=== PATIENT | male | born 1945 | race Caucasian/White ===

== ENCOUNTER → 2017-08-27 16:35 | Outpatient (CLI) | payer MEDICARE, OTHER ==
[~2017-08-27 16:35] MED LIST: BAYER CHEWABLE81 MG PO; BREO ELLIPTA 11 EACH INH; IPRAT-ALBUT 0.5-3 ML UPD; KLOR-CON 1010 MEQ PO; MIRAPEX0.125 MG PO; NITROQUICK0.4 MG SL; NORVASC5 MG PO; VITAMIN B-1000 MCG/M IM
[2017-08-27 17:11] LABS: LDL-HDL RATIO 0.8 ratio (1.5-3.5)
[2017-09-30 07:41] VITALS: BMI 16.9
== END | disposition home or self-care (01) ==
LOC: D.LABREF 16:35
PROVIDERS: Internal Medicine Cardiovascular Disease
DX: R06.00 Dyspnea, unspecified (principal)

== ENCOUNTER 2017-09-30 07:03 | Outpatient (CLI) | payer MEDICARE, OTHER ==
[~2017-09-30] VITALS: Ht 185.4 cm; Wt 58.2 kg
--- NOTE | ~2017-09-30 | HEMODYNAMI ---
PATIENT:ERICKA BLAIR MEDICAL RECORD: [id number] : 43 LOCATION:[facility] ADMISSION DATE: 09/30/17 Generatedon:09/30/201710:06 Patient name: ERICKA BLAIR Patient #: [id number] SSN: D OB: 1945 Date of study: 09/30/2017 Page: Of Hemodynamic Procedure Report Patient Data Patient Demographics Procedure consent was obtained First Name: ERICKA Gender: Male Last Name: JOHNNIE : 1945 Patient #: [id number] Age: 72 year(s) Race: Unknown Additional ID: [id number] Contact details [address]: [address] [place] [address] State: [place] City: [place] Zip code: [address] Past Medical History Allergies: No known allergies Admission Admission Data Admission Date: 09/30/2017 Admission Time: 7:03 Admit Source: Other Height (in.): 6.1 BSA: 0.3 (m2) Height (cm.): 15.49 BMI: 2437.41 (kg/m2) Weight (lbs.): 129 Weight (kg.): 58.51 Procedure Procedure Types Cath Procedure Diagnostic Procedure [facility] w/Coronaries Miscellaneous Procedures Moderate Sedation up to 15 minutes Procedure Description Procedure Date Procedure Date: 09/30/2017 Procedure Start Time: 9:49 Procedure End Time: 10:05 Procedure Staff Name Function Teddy Mccullough MD Performing Physician Braulio Webb RT Scrub Ira Carlisle RN Nurse Kerry Becker RT Monitor Procedure Data Cath Procedure Fluoroscopy Diagnostic fluoroscopy Total fluoroscopy Time: 2 time: 2 min min Diagnostic fluoroscopy Total fluoroscopy dose: 135 dose: 135 mGy mGy Contrast Material Contrast Material Type Amount (ml) Isovue 300 52 Entry Location Entry Primary Successful Side Size Upsize Upsize Entry Closure Succes sful Closure Location (Fr) 1 (Fr) 2 (Fr) Remarks Device Remarks Femoral Right 5 Fr Exoseal artery Estimated blood loss: 5 ml Diagnostic catheters Device Type Used For End Catheter Placement Cordis 5Fr JL 4.0 Procedure Catheter (MP) Cordis 5Fr 3DRC Catheter Procedure (MP) Cordis 5Fr Pigtail Procedure Catheter (MP) Procedure Complications No complications Procedure Medications Medication Administration Route Dosage Oxygen NC 2 l/min Lidocaine 2% added to field 20 Heparin Flush Bag added to field 2 bags (1000units/500ml NS) 0.9% NaCl I.V. bolus 500 ml Versed I.V. 1 mg Fentanyl I.V. 25 mcg Hemodynamics Rest BSA: 0.3 (m2) O2 Consumption: Estimated: 35.2 (ml/min) O2 Consumption indexed: Estimated:117.33 (ml/min/m) Heart Rate: 75 (bpm) Pressure Samples Time Site Value (mmHg) Purpose Heart Use Rate(bpm) 10:00 LV 140/-4,8 EDP 82 10:01 AO 131/66(95) Pullback 74 10:01 LV 92/4,10 Pullback 74 Gradients Valve Time Site 1 Site 2 Mean SEP/DFP Peak To Heart Use (mmHg) (sec/min) Peak Rate (mmHg) (bpm) Aortic 10:01 LV AO 0 20 0 74 92/4,10 131/66(95) Calculations Valve P-P Mean Valve Index Valve Source Name Gradient Area Flow (cm2) Aortic 0 0 0 0 Snapshots Pre Cath Intra NCS Post Cath Vital Signs Time Heart Resp SPO2 etCO2 NIBP (mmHg) Rhythm Pain Sedation Rate (ipm) (%) (mmHg) Status Level (bpm) 9:33:57 76 15 100 0 137/84(105) NSR 0 (11) 10(A) , No pain 9:38:42 74 17 100 18.1 137/84(112) NSR 0 (11) 10(A) , No pain 9:43:18 73 16 100 29.4 139/85(118) NSR 0 (11) 10(A) , No pain 9:47:57 76 18 100 25.6 140/75(109) NSR 0 (11) 10(A) , No pain 9:52:39 75 16 100 24.2 133/82(109) NSR 0 (11) 10(A) , No pain 9:57:14 77 22 100 31 130/85(112) NSR 0 (11) 10(A) , No pain 10:01:48 83 18 100 24.9 132/82(110) NSR 0 (11) 10(A) , No pain Medications Time Medication Route Dose Verified Delivered Reason Notes Effec tiveness by by 9:37:56 Oxygen NC 2 Teddy Buffie used for l/min Sadia Carlisle RN procedure MD 9:38:04 Lidocaine 2% added 20ml Teddy Teddy for local to vial Sadia Mccullough MD anesthetic field 9:38:11 Heparin Flush added 2 Teddy Teddy used for Bag to bags Sadia Mccullough MD procedure (1000units/500ml field LONGO NS) 9:38:22 0.9% NaCl I.V. 500 Teddy Buffie Per bolus ml Sadia Carlisle RN physician 9:44:58 Versed I.V. 1 mg Teddy Buffie for Sadia Carlisle RN sedation 9:45:06 Fentanyl I.V. 25 Teddy Buffie for mcg Sadia Carlisle RN sedation Procedure Log Time Note 9:17:17 Informed consent obtained and on chart 9:17:20 Admit Source: Other 9:17:40 Diagnostic Cath status Elective 9:17:42 Kerry Becker RT(R) sent for patient. Start room use. 9:17:43 Time tracking: Regular hours 9:17:48 Plan of Care:Hemodynamics will remain stable., Cardiac rhythm will remain stable., Comfort level will be maintained., Respiratory function will remain adequate., Patient/ family verbilizes understanding of procedure., Procedure tolerated without complication., Recovers from procedure without complications.. 9:22:18 H&P Date Dictated: 09/22/2017 Within 30 days and on chart., H&P Addendum completed by physician on day of procedure. (MUST COMPLETE FOR ALL OUTPATIENTS). 9:25:30 Patient received from Pre/Post Procedure Room to CCL 1 Alert and oriented. Tansferred to table in Supine position. 9:25:32 Warm blankets applied, and jose m hugger turned on for patient comfort. 9:25:35 Correct patient and procedure confirmed by team. 9:25:36 ECG and BP/O2 sat monitors applied to patient. 9:33:05 Vital chart was started 9:37:17 Baseline sample Acquired. 9:37:22 Rhythm: sinus rhythm 9:37:23 Full Disclosure recording started 9:37:33 Pre-procedure instructions explained to patient. 9:37:34 Pre-op teaching completed and patient verbalized understanding. 9:37:35 Family in patients room. 9:37:37 Patient NPO since Midnight. 9:37:44 Patient allergic to No known allergies 9:37:47 Is the patient allergic to Iodine/contrast media? No. 9:37:51 Is patient on blood thinner?Yes 9:37:54 ACC The patient was administered the following blood thiners within the last 24 hours: ACCPlavix 9:37:56 Oxygen 2 l/min NC was administered by Ira Carlisle RN; used for procedure; 9:37:56 Patient diabetic? No. 9:38:00 Previous problem with sedation/anesthesia? No ? 9:38:02 Snore? Yes 9:38:03 Sleep apnea? No 9:38:04 Lidocaine 2% 20ml vial added to field was administered by Teddy Mccullough MD; for local anesthetic; 9:38:04 Deviated septum? No 9:38:05 Opens mouth fully? Yes 9:38:06 Sticks out tongue? Yes 9:38:11 Heparin Flush Bag (1000units/500ml NS) 2 bags added to field was administered by Teddy Mccullough MD; used for procedure; 9:38:22 0.9% NaCl 500 ml I.V. bolus was administered by Ira Carlisle RN; Per physician; 9:38:33 Airway obstruction? Yes ASTHMA, COPD 9:38:36 Dentures? Yes OUT 9:38:41 Pre procedure: right dorsailis pedis pulse 2+ Normal; easily identifiable; not easily obliterated 9:38:44 Patient pain scale 0/10 ?. 9:38:50 IV patent on arrival in left forearm with 0.9% NaCl at [facility]. 9:39:05 Lab results completed and on chart. 9:39:09 Right groin area was prepped with chlora-prep and draped in sterile fashion 9:39:10 Alarms reviewed by R. N. 9:39:11 Sharps counted by scrub and verified by R.N. 9:39:14 --------ALL STOP TIME OUT------ 9:39:14 Final Timeout: patient, procedure, and site verified with staff and physician. All members of the team are in agreement. 9:39:17 Right groin site verified by team. 9:39:21 Physical assessment completed. ASA score P 2 - A patient with mild systemic disease as per Teddy Mccullough MD. 9:39:30 Sedation plan: IV Moderate Sedation Medication:Versed, Fentanyl 9:44:49 Use device set Femoral Dx 9:44:51 Acist Syringe opened to sterile field. 9:44:52 Bag Decanter opened to sterile field. 9:44:53 Tegaderm 4 x 4 opened to sterile field. 9:44:54 Acist Manifold opened to sterile field. 9:44:55 Acist Hand Control opened to sterile field. 9:44:56 Medline Cath Pack opened to sterile field. 9:44:56 Terumo 5Fr Flushing Sheath opened to sterile field. 9:44:57 St Juvencio 260cm J .035 wire opened to sterile field. 9:44:58 Versed 1 mg I.V. was administered by Ira Carlisle RN; for sedation; 9:44:58 Diagnostic Infinity 5Fr Multipack catheter opened to sterile field. 9:45:06 Fentanyl 25 mcg I.V. was administered by Ira Carlisle RN; for sedation; 9:45:23 Patient Height : 6.1 inches 9:45:29 Patient Weight : 129 lbs 9:48:13 Procedure started. 9:49:45 Local anesthetic to right femoral artery with Lidocaine 2% by Teddy Mccullough MD.INITIAL ACCESS ONLY 9:52:52 Zero performed for pressure channel P1 9:53:46 Access obtained with 4Fr micropunture. 9:53:53 A 5 Fr sheath was inserted into the Right Femoral artery 9:54:11 A Cordis 5Fr JL 4.0 Catheter (MP) was advanced over the wire and used for Procedure. 9:55:25 LCA angiography performed. 9:55:42 Catheter removed. 9:56:46 A Cordis 5Fr 3DRC Catheter (MP) was advanced over the wire and used for Procedure. 9:57:54 RCA angiography performed. 9:58:03 Catheter removed. 9:58:41 A Cordis 5Fr Pigtail Catheter (MP) was advanced over the wire and used for Procedure. 9:58:50 Injector settings: Ml/sec: 12, Volume: 8, 9:58:52 LV hemodynamics recorded. 9:58:55 LV gram done using CHAVEZ 10:01:30 EF : 65 % 10:01:38 Cordis 5Fr Exoseal opened to sterile field. 10:01:42 Catheter removed. 10:02:01 Sheath removed intact; hemostasis achieved with Exoseal to the Right Femoral artery. 10:02:23 Procedure ended.(Physican Out) 10:02:34 Fluoroscopy time 02.00 minutes. 10:02:39 Flurop Dose total: 135 10:02:39 Fluoroscopy dose: 135 mGy 10:03:27 Contrast amount:Isovue 300 52ml. 10:03:28 Sharps counted by scrub and verified by R.N. 10:03:33 Post-op/insertion site Right Femoral artery dressed using a 4 x 4 and Tegaderm. 10:03:39 Post right femoral artery:stable, soft, clean and dry 10:03:41 Post Procedure Pulses reassessed and unchanged 10:03:45 Post procedure: right dorsailis pedis pulse 2+ Normal; easily identifiable; not easily obliterated. 10:03:48 Post-procedure physical assessment completed. ASA score P 2 - A patient with mild systemic disease as per Teddy Mccullough MD. 10:03:50 Post procedure rhythm: unchanged. 10:03:53 Estimated blood loss: 5 ml 10:03:55 Patient needs reinforcement of post procedure teaching. 10:03:55 Post procedure instruction explained to patient.Patient verbalizes understanding. 10:04:08 Procedure type changed to Cath procedure, Diagnostic procedure, LHC, LHC w/Coronaries, Miscellaneous Procedures, Moderate Sedation up to 15 minutes 10:04:55 Cook 4Fr Micropuncture Set ([id number]) opened to sterile field. 10:05:10 Procedure and supply charges have been captured, reviewed, submitted and are correct. 10:05:12 Procedure Complication : No complications 10:05:18 Vital chart was stopped 10:05:19 See physician's report for complete and final results. 10:05:36 Report given to Pre/Post Procedure Room. 10:05:39 Patient transfered to Pre/Post Procedure Room with Bed. 10:05:55 Procedure ended. 10:05:55 Full Disclosure recording stopped 10:06:12 End room use (Document Last) Device Usage Item Name Manufacture Quantity Catalog Hospital Part Current Minimal Lot# / Number Charge Number Stock Stock Serial# Code Acist Syringe Acist 1 42354 583786 631249 257421 20 [employer] Bag Decanter Microtek 1 2002S 593722 94464 870356 5 Medical Inc. Tegaderm 4 x 3M 1 1626W 385585 935688 996192 5 4 Acist Acist 1 07579 660157 130769 050131 5 Manifold [employer] Inc Acist Hand Acist 1 83457 563591 138288 908156 5 Control [employer] Inc Medline Cath Cardinal 1 [id number] 311970 31369 565216 5 Pack Health Terumo 5Fr Terumo 1 [id number] 882585 412540 934973 [address] Juvenc[address] Juvencio 1 336443 235414 842120 175564 30 J .035 wire Diagnostic Cardinal 1 [id number] 115271 89672 983182 30 Infinity 5Fr Health Multipack catheter Cordis 5Fr JL Cardinal 1 133937 5 4.0 Catheter Health (MP) Cordis 5Fr Cardinal 1 727125 5 3DRC Catheter Health (MP) Cordis 5Fr Cardinal 1 [id number] 5 Pigtail Health Catheter (MP) Cordis 5Fr Cardinal 1 EX500 937302 601387 928387 10 Exoseal Health Cook 4Fr [place] [employer] 1 E08350 617665 309234 535538 5 Micropuncture Set ([id number]) Signature Audit [place] Stage Time Signature Unsigned Intra-Procedure 09/30/2017 Kerry Becker 10:06:56 AM RT(R) Signatures Monitor : Kerry Becker Signature : RT Date : Time : [facility] [address] [facility] [place] [address]
[2017-09-30] MEDS ORDERED: VITAMIN B-1000 MCG/M IM (07:36)
[2017-09-30] MEDS ORDERED: NORVASC5 MG PO (07:36)
[2017-09-30] MEDS ORDERED: MIRAPEX0.125 MG PO (07:37)
[2017-09-30] MEDS ORDERED: NITROQUICK0.4 MG SL (07:37)
[2017-09-30] MEDS ORDERED: KLOR-CON 1010 MEQ PO (07:37)
[2017-09-30] MEDS ORDERED: BREO ELLIPTA 11 EACH INH (07:38)
[2017-09-30] MEDS ORDERED: IPRAT-ALBUT 0.5-3 ML UPD (07:38)
[2017-09-30] MEDS ORDERED: BAYER CHEWABLE81 MG PO (07:38)
[2017-09-30 07:41] VITALS: BP 166/88; Ht 185.4 cm; Wt 58.2 kg
[2017-09-30 07:48] LABS: BASOPHILS 0.3 % (0-2); EOSINOPHILS 1.9 % (0-7); HEMATOCRIT 37.7 % (42.0-54.0); IMMATURE GRANULOCYTES 0.3 % (0-5); LYMPHOCYTES 14.3 % (15-50); MCH 35.6 pg (26.0-34.0); MCHC 34.5 g/dL (31.0-37.0); MCV 103.3 fL (80.0-100.0); MEAN PLATELET VOLUME 10.2 fL (7.4-10.4); MONOCYTES 7.3 % (2-11); NEUTROPHILS 75.9 % (40-80); PLATELET COUNT 172 10x3/uL (130-400); RBC 3.65 10x6/uL (4.20-6.10); WBC 6.9 10x3/uL (4.8-10.8)
[2017-09-30 08:19] LABS: CALC OSMOLALITY 286 mosm/kg (275-300); CHLORIDE - SERUM 109 mmol/L (98-107); CREATININE - SERUM 0.8 mg/dL (0.6-1.3); POTASSIUM - SERUM 3.2 mmol/L (3.5-5.1); SODIUM 147 mmol/L (136-145); UREA NITROGEN 5 mg/dL (7-18); eGFR NON AFRICAN AMERICAN > 90 mL/min (90-120)
[2017-09-30 08:20] LABS: GLUCOSE 69 mg/dL (74-106)
--- NOTE | 2017-09-30 10:35 | NUR ---
RIGHT GROIN 5F EXOSEAL CDI, NO BLEEDING OR HEMATOMA NOTED. ROOM AIR, NO RESP DISTRESS. VSS. DENIES ANY PAIN OR NAUSEA. FAMILY AT BEDSIDE, CALL LIGHT WITHIN REACH.
--- NOTE | 2017-09-30 11:06 | NUR ---
ROOM AIR, NO RESP DISTRESS. RIGHT GROIN 5F EXOSEAL CDI, NO BLEEDING OR HEMATOMA NOTED. VSS. SANDWICH TRAY AND DRINK GIVEN, NO C/O NAUSEA. DENIES ANY NEEDS AT THIS TIME. WILL CONTINUE TO MONITOR CLOSELY.
--- NOTE | 2017-09-30 11:34 | NUR ---
HOB ELEVATED 30 DEGREES. RIGHT GROIN 5F EXOSEAL CDI, NO BLEEDING OR HEMATOMA NOTED. VSS.
--- NOTE | 2017-09-30 11:45 | NUR ---
LEFT FA PIV D/C'D WITH CATHETER INTACT, BAND AID TO SITE. UP TO BEDSIDE TO GET DRESSED.
--- NOTE | 2017-09-30 11:52 | NUR ---
DISCHARGE INSTRUCTIONS GIVEN, VERBALIZED UNDERSTANDING.
--- NOTE | 2017-09-30 12:00 | NUR ---
TAKEN OUT VIA WHEELCHAIR BY [facility] CLINICAL SUPERVISOR. LEFT FACILITY WITH FAMILY MEMBER AND ALL PERSONAL BELONGINGS.
== END 2017-09-30 12:00 | disposition home or self-care (01) ==
LOC: D.CATH 07:03
PROVIDERS: Internal Medicine Cardiovascular Disease
DX: I20.9 Angina pectoris, unspecified (principal); R06.00 Dyspnea, unspecified; R00.2 Palpitations; F17.200 Nicotine dependence, unspecified, uncomplicated; Z01.812 Encounter for preprocedural laboratory examination

== ENCOUNTER → 2017-12-17 20:06 | Outpatient (CLI) | payer MEDICARE, OTHER ==
[2017-09-30 07:41] VITALS: BMI 16.9
== END | disposition home or self-care (01) ==
LOC: D.SLEEP 08:00
DX: G47.10 Hypersomnia, unspecified (principal)

== ENCOUNTER 2019-01-28 14:11 | Inpatient (IN) | payer MEDICARE, OTHER ==
[~2019-01-28] VITALS: Ht 185.4 cm; Wt 70.8 kg
[2019-01-28] MEDS ORDERED: PROTONIX FOR OR40 MG PT (14:39)
[2019-01-28] MEDS ORDERED: TEGRETOL XR200 M1 PO (14:40)
[2019-01-28] MEDS ORDERED: FOLIC ACID1 MG PO (14:41)
[2019-01-28] MEDS ORDERED: TRAZODONE HCL150 MG PO (14:41)
[2019-01-28] MEDS ORDERED: MELATONIN10 M1 PO (14:42)
[2019-01-28] MEDS ORDERED: MULTI-DAY VITAM1 TAB PO (14:42)
[2019-01-28] MEDS ORDERED: REMERON15 MG PO (14:43)
[2019-01-28 15:08] VITALS: BP 104/60; BMI 20.6
[2019-01-28 16:28] VITALS: BP 115/20
[2019-01-28 20:00] VITALS: BP 114/69
[2019-01-29] VITALS (12 sets, daily range): BP systolic 105–141; BP diastolic 52–77; Ht 185.4 cm; Wt 70.8 kg
[2019-01-29 04:28] LABS: BASOPHILS 0.2 % (0-2); EOSINOPHILS 0 % (0-7); HEMATOCRIT 33.4 % (42.0-54.0); IMMATURE GRANULOCYTES 0.2 % (0-5); LYMPHOCYTES 4.7 % (15-50); MCH 32.8 pg (26.0-34.0); MCHC 32.9 g/dL (31.0-37.0); MCV 99.7 fL (80.0-100.0); MEAN PLATELET VOLUME 10.2 fL (7.4-10.4); NEUTROPHILS 93.9 % (40-80); RBC 3.35 10x6/uL (4.20-6.10); RDW 12.5 % (11.5-14.5); WBC 5.7 10x3/uL (4.8-10.8)
[2019-01-29 04:33] LABS: PLATELET COUNT 261 10x3/uL (130-400)
[2019-01-29 04:41] LABS: INR 1.14 (0.85-1.17); PROTIME 14.1 SECONDS (11.6-15.0)
[2019-01-29 04:42] LABS: APTT 36.2 SECONDS (22.8-39.4)
[2019-01-29 04:43] LABS: D-DIMER-QUANTITATIVE 1.02 ug/mLFEU (0.20-0.54)
[2019-01-29 05:09] LABS: ANION GAP 13.9 mmol/L (8-16); BILIRUBIN - TOTAL 0.26 mg/dL (0.2-1.3); CALCIUM 7.8 mg/dL (8.5-10.1); CARBON DIOXIDE 24.8 mmol/L (21.0-32.0); CREATININE - SERUM 1.2 mg/dL (0.6-1.3); MAGNESIUM - SERUM 1.8 mg/dL (1.8-2.4); POTASSIUM - SERUM 3.7 mmol/L (3.5-5.1); PROTEIN - SERUM 5.5 g/dL (6.4-8.2)
--- NOTE | 2019-01-29 07:17 | HP ---
PATIENT: ERICKA BLAIR MEDICAL RECORD: [id number] ACCOUNT: [id number] LOCATION:D.[facility] Lopez2227 : 43 ADMISSION DATE: 01/28/19 PCP: СЕРГЕЙ GOTTI MD HISTORY AND PHYSICAL EXAMINATION REASON FOR ADMISSION: Fever with cough. HISTORY OF PRESENT ILLNESS: The patient is a 73-year-old male with past medical history significant for chronic anemia with negative workup in bone marrow, COPD, alcohol dependence, and alcoholic cirrhosis. He had had fever to 100-101 off and on for the last couple of weeks. He was seen in the office and treated empirically with doxycycline, which improved his fever, but not his cough. He also states he has not had alcohol in the last 3-4 weeks. He came to the office today and was evaluated, was noted to have a left pleural effusion, essentially normal laboratory. He is mildly tachypneic when he walks or exerts himself. He has had no hemoptysis. He is now being admitted for further workup. PAST MEDICAL HISTORY: Chronic anemia with negative extensive workup March of 2018, seen Dr. Pathak with negative bone marrow biopsy; COPD and current 2-pack a day smoker; alcoholic with history of alcoholic liver disease, follow with Dr. Sachin Neff; skin cancers; history of depression; GERD; hypertension; IBS; restless leg syndrome; history of elevated CEA. PAST SURGICAL HISTORY: History of ankle fracture, history of EGD with dilatation in 2017, colonoscopy with negative biopsy in 2012, open reduction internal fixation of a right clavicular fracture in 2014, removal of ankle hardware in July of 2017, shoulder arthroscopy with right rotator cuff repair in September of 2015. FAMILY HISTORY: Mother's history is unknown. Father had leukemia. SOCIAL HISTORY: He is . 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 He states he smokes 2 packs of cigarettes a day and drinks 1 pint of VO daily, none in the last 4 weeks. He has had no withdrawal. CURRENT MEDICATIONS: Trazodone 50 mg one-half to one at bedtime for sleep, potassium ER 20 mEq daily, Trelegy Ellipta 100/62.5 one puff daily, carbamazepine ER 200 mg p.o. twice daily for alcohol withdrawal, Viagra 20 mg one as directed p.r.n., tramadol 50 mg 1 q.8 hours p.r.n. pain, pantoprazole 40 mg p.o. q.a.m., folic acid 1 mg daily, mirtazapine 15 mg disintegrating tablet 1 at bedtime, vitamin B12 1 cc IM monthly, albuterol sulfate handheld nebulizer q.4-6 hours p.r.n. shortness of breath, ferrous sulfate, multivitamin 9 mg 5 cc daily, aspirin 81 mg a day, Zofran 4 mg q.4 hours p.r.n. nausea or vomiting, and triamcinolone acetate 0.1% topical cream to rash b.i.d. p.r.n. itching. ALLERGIES: None mentioned. REVIEW OF SYSTEMS: GENERAL: He has been fatigued, fever as mentioned above. Fair appetite. HEENT: No recent visual change, sinus congestion, or sore throat. RESPIRATORY: Cough, intermittently productive for the last 2 weeks, mild shortness of breath. CARDIAC: No palpitations, PND, orthopnea, or claudication. GASTROINTESTINAL: No nausea. He has had some vague abdominal pain, but he has HISTORY AND PHYSICAL [id number] ERICKA BLAIR not had a bowel movement in 2 weeks. No blood per rectum. ENDOCRINE: Denies polyuria, polydipsia, heat or cold intolerance. NEUROLOGIC: No history of stroke, TIA, or vascular headaches. Mild dizziness with intermittent blurred vision. INTEGUMENT: No rash or itching. PSYCHIATRIC: Admits to anxiety and intermittently depressed mood, but no suicidal ideation. MUSCULOSKELETAL: Has arthralgias in the lumbar spine without sciatica. GENITOURINARY: Awakes at night to urinate once or twice nightly, with slow stream. PHYSICAL EXAMINATION: VITAL SIGNS: His blood pressure 120/78, heart rate is 96 and regular, respirations were 18, sats 94% on room air. His height 6 feet 1, weight is 157 pounds or 20.7 BMI, which is stable. GENERAL: Generally, mildly disheveled appearing, in no acute distress. HEENT: His eyes are clear. Oropharynx unremarkable. NECK: No bruits or masses. CHEST: Shows decreased breath sounds in the left base. No E to A changes. Faint wheeze in the upper lobes bilaterally on forced expiration. HEART: Tachycardic without murmur. ABDOMEN: Soft, minimally tender over the liver edge. Bowel sounds are active. RECTAL: Deferred. EXTREMITIES: No CC&E. NEUROLOGIC: The patient is oriented to person, place, and time. Memory is intact. Gait is normal. No abnormal reflexes are appreciated. DIAGNOSTIC DATA: Chest x-ray shows flattened diaphragms and a left pleural effusion, which is new from 1 year ago. Abdominal series shows constipation throughout the colon. No air-fluid levels. LABORATORY DATA: BMP shows a chloride of 109 elevated, glucose of 82, potassium 3.6, sodium of 148. White count is 7180, H&H of 12.9 and 38.6 with MCV of 101. Alkaline phosphatase elevated at 136. Urinalysis is pending. ASSESSMENT: 1. COPD with exacerbation. 2. Left pleural effusion, possible parapneumonic effusion. 3. Alcoholism with alcoholic cirrhosis. 4. Essential hypertension. 5. Depression. 6. Osteoarthritis. 7. Constipation. 8. Abdominal pain. 9. Fever. 10. Chronic anemia. PLAN: The patient will be admitted and cultured, placed on IV antibiotics. Pulmonary consult will be obtained. Further workup pending clinical course. TRANSINT:[id number] Voice Confirmation ID: [id number] DOCUMENT ID: [id number] HISTORY AND PHYSICAL [id number] ERICKA BLAIR TIMOTHY MD at 0717 CC: [id number] DICTATION DATE: 01/28/19 1406 CONTROLS TECHNICIAN: 01/28/19 1546 ADM IN [place] [id number] [place] [address]
--- NOTE | 2019-01-29 07:25 | NUR ---
PT RESTING QUIETLY IN BED WATCHING TV. INSTRUCTED PT AT THIS TIME TO REMAIN NPO PENDING THORACENTESIS THIS AM. PT VOICES UNDERSTANDING. NO ACUTE DISTRESS NOTED AT THIS TIME. DENIES PAIN. SALINE LOC TO RIGHT FOREARM INTACT, WITHOUT REDNESS OR EDEMA. CL WITHIN REACH. ENCOURAGED TO CALL WITH NEEDS.
[2019-01-29 15:54] LABS: EOS BF 2 %; MACROPHAGES BF 53 %; MESOTHELIALS BF 2 %; NEUT - BF 22 %
--- NOTE | 2019-01-29 16:56 | MORECARE ---
CASE MANAGEMENT DISCHARGE SUMMARY PATIENT: ERICKA BLAIR UNIT: [id number] ADM DATE: 01/28/19 AGE: 73 : 43 SEX: M ROOM/BED: D.2227 AUTHOR: JUDIE CARLSON PHYSICIAN: REFERRING PHYSICIAN: СЕРГЕЙ GOTTI MD DATE OF SERVICE: 01/29/19 Discharge Plan Patient Name: ERICKA BLAIR [facility] : 1945 Planned Disposition: Home Anticipated Discharge Date: Discharge Date: Expected LOS: Initial Reviewer: [email or web address] Initial Review Date: 01/29/2019 Generated: 01/29/19 5:56 pm DCPIA - Discharge Planning Initial Assessment Updated by [email or web address]: Autumn Ruiz on 01/29/19 4:53 pm * Is the patient Alert and Oriented? Yes * How many steps to enter\exit or inside your home? 1 flight/0 * PCP Sees Juliane Ramos at Dr. Hart's office * [facility]acy [facility] * Preadmission Environment Home with Family * ADLs Partial Dependent * Partial ADLs (Assistance needed) Ambulation Bathing Dressing Medication Management Transfers * Equipment Cane Nebulizer Walker * List name and contact numbers for known caregivers / representatives who currently or will assist patient after discharge: Zaina Blair - [facility] - [phone] * Verbal permission to speak to the caregivers and representatives has been obtained from the patient. Yes * Community resources currently utilized None * Additional services required to return to the preadmission environment? No * Can the patient safely return to the preadmission environment? Yes * Has this patient been hospitalized within the prior 30 days at any hospital? No Patient Name: ERICKA BLAIR Page [id number] at 1656 All edits/amendments must be made on the electronic document DICTATION DATE: 01/29/191654 INPATIENT AUDITOR: JOSE DAVID 01/29/191654 RPT#: [id number] DC DATE: STATUS: ADM IN [facility] [address] [place] [address] END OF REPORT
[2019-01-30 02:00] VITALS: BP 120/58
[2019-01-30 04:00] VITALS: BP 124/69
--- NOTE | 2019-01-30 08:18 | NUR ---
PT AAOX4 RESP EVEN AND NONLABORED, NO SIGNS OF DISTRESS NOTED, ASKING FOR URINAL TO BE EMPITED DONE AT THIS TIME WITH 350CC OUTPUT, CL IN REACH
[2019-01-30 09:15] VITALS: BP 147/77
[2019-01-30 14:30] VITALS: BP 117/59
[2019-01-30 16:00] VITALS: BP 127/67
--- NOTE | 2019-01-30 18:03 | NUR ---
I have reviewed this patient and I concur with the Shift Assessment completed by the Licensed Practical Nurse today this shift.
[2019-01-30 19:08] LABS: ACID FAST SMEAR Negative (()); AFB SPECIMEN PROCESSING Concentration (())
--- NOTE | 2019-01-31 | NUR ---
IV CAME OUT. RESITED 22 GAUGE TO RIGHT FOREARM 2ND ATTEMPT. HUNG SCHEDULED ANTIBIOTIC. COMPLETE ASSESSMENT PER FLOW-SHEET. PT SITTING UP IN BED WATCHING TV AND DRINKING COFFEE. NO OTHER NEEDS. WILL CONTINUE TO MONITOR.
[2019-01-31 00:19] VITALS: BP 131/75
[2019-01-31 05:34] LABS: BASOPHILS 0.2 % (0-2); EOSINOPHILS 0.1 % (0-7); HEMATOCRIT 30.6 % (42.0-54.0); IMMATURE GRANULOCYTES 1.1 % (0-5); LYMPHOCYTES 12.7 % (15-50); MCH 32.7 pg (26.0-34.0); MCHC 32.7 g/dL (31.0-37.0); MEAN PLATELET VOLUME 10.1 fL (7.4-10.4); MONOCYTES 7.5 % (2-11); NEUTROPHILS 78.4 % (40-80); PLATELET COUNT 283 10x3/uL (130-400); RBC 3.06 10x6/uL (4.20-6.10); RDW 13.2 % (11.5-14.5); WBC 8.9 10x3/uL (4.8-10.8)
[2019-01-31 05:40] LABS: CALC OSMOLALITY 287 mosm/kg (275-300); CARBON DIOXIDE 25.8 mmol/L (21.0-32.0); CHLORIDE - SERUM 112 mmol/L (98-107); GLUCOSE 102 mg/dL (74-106); POTASSIUM - SERUM 3.9 mmol/L (3.5-5.1); SODIUM 145 mmol/L (136-145); UREA NITROGEN 10 mg/dL (7-18); eGFR NON AFRICAN AMERICAN 78 mL/min (90-120)
[2019-01-31 10:02] VITALS: BP 138/83
[2019-01-31 13:10] VITALS: BP 121/69
[2019-01-31 16:31] VITALS: BP 119/83
--- NOTE | 2019-01-31 18:45 | NUR ---
I have reviewed this patient and I concur with the Shift Assessment completed by the Licensed Practical Nurse today this shift.
[2019-01-31 20:00] VITALS: BP 124/78
--- NOTE | 2019-01-31 21:50 | NUR ---
PT ALERT & ORIENTED. GAVE SCHEDULED MEDS. ASSESSMENT COMPLETE PER FLOW-SHEET. NO OTHER NEEDS. WILL CONTINUE TO MONITOR.
[2019-02-01 04:00] VITALS: BP 128/73
--- NOTE | 2019-02-01 07:45 | NUR ---
PT RESTING QUIETLY IN BED. NO ACUTE DISTRESS. NON-PRODUCTIVE COUGH NOTED. DENIES PAIN AT THIS TIME. SALINE LOC TO RIGHT FOREARM PATENT, WITHOUT REDNESS OR EDEMA. DENIES FURTHER NEEDS AT THIS TIME. CL WITHIN REACH. ENCORUAGED TO CALL WITH NEEDS. CONTINUE POC
[2019-02-01 09:31] VITALS: BP 153/83
--- NOTE | 2019-02-01 11:40 | NUR ---
PT IV TO RIGHT FOREARM INFILTRATED AND LEAKING AT SITE. 22G RESITED TO ANTERIOR RIGHT FOREARM RESITED X [address] GOOD BLOOD RETURN, EASILY FLUSHES. CL WITHIN REACH. ENCOURAGED TO CALL WITH NEEDS. CONTINUE TO MONITOR.
[2019-02-01 13:00] VITALS: BP 143/76
[2019-02-01 13:14] LABS: FUNGUS STAIN Final report (())
--- NOTE | 2019-02-01 16:48 | MORECARE ---
CASE MANAGEMENT DISCHARGE SUMMARY PATIENT: ERICKA BLAIR UNIT: [id number] ADM DATE: 01/28/19 AGE: 73 : 44 SEX: M ROOM/BED: D.2227 AUTHOR: JUDIE CARLSON PHYSICIAN: REFERRING PHYSICIAN: СЕРГЕЙ GOTTI MD DATE OF SERVICE: 02/01/19 Discharge Plan Patient Name: ERICKA BLAIR Facility: [facility]:[place] : 1945 Planned Disposition: Home Anticipated Discharge Date: Discharge Date: Expected LOS: Initial Reviewer: [email or web address] Initial Review Date: 01/29/2019 Generated: 02/01/19 5:48 pm Comments DCP- Discharge Planning Updated by [email or web address]: Autumn Ruiz on 02/01/19 3:[address] Met with patient about nebulizer and neb meds. He states he already has a nebulizer and uses duo neb. He states he has a letter from [facility] to get his inhalers free of charge. He gets his duo neb from [facility]. He does not want me to get it through his DME. He states he is going to ask about the neb meds as well. CM will continue to follow and assist with discharge planning/needs. DCP- Discharge Planning Updated by [id number]: Autumn Ruiz on 01/29/19 3:[address] Patient Name: ERICKA BLARI Admission Status: Urgent Accout number: [id number] Admission Date: 01-28-2019 : 1945 Admission Diagnosis: Attending: СЕРГЕЙ GOTTI Current LOS: 1 Anticipated DC Date: Planned Disposition: Home Primary Insurance: MEDICARE A & B Discharge Planning Comments: CM met with patient and his to discuss discharge planning. States he lives with his in a condo. States he has one flight downstairs to his apartment. States he is partially dependent on his for ADL's. States he no longer drives, his drives him where he needs to go. I discussed availability of rehab, SNF, home health and additional DME. He states he plans on returning home with his . He declines need for home health or additional DME. He has and he is going to get his neb meds from them, states they just sent him a letter about it. CM will continue to follow and assist with discharge planning/needs. Internet Sales Representative: Autumn Ruiz DCPIA - Discharge Planning Initial Assessment Updated by [email or web address]: Autumn Ruiz on 01/29/19 4:53 pm * Is the patient Alert and Oriented? Yes * How many steps to enter\exit or inside your home? 1 flight/0 * PCP Sees Juliane Ramos at Dr. Hart's office * Pharmacy [facility] ([facility]) * Preadmission Environment Home with Family * ADLs Partial Dependent * Partial ADLs (Assistance needed) Ambulation Bathing Dressing Medication Management Transfers * Equipment Cane Nebulizer Walker * List name and contact numbers for known caregivers / representatives who currently or will assist patient after discharge: Zaina Blair - [facility] - [phone] * Verbal permission to speak to the caregivers and representatives has been obtained from the patient. Yes * Community resources currently utilized None * Additional services required to return to the preadmission environment? No * Can the patient safely return to the preadmission environment? Yes * Has this patient been hospitalized within the prior 30 days at any hospital? No Last DP export: 01/29/19 3:56 p Patient Name: ERICKA BLAIR Page [id number] at 1648 All edits/amendments must be made on the electronic document DICTATION DATE: 02/01/191647 CONTINUOUS IMPROVEMENT SPECIALIST: JOSE DAVID 02/01/191647 RPT#: [id number] DC DATE: STATUS: ADM IN [facility] [address] [place] [address] END OF REPORT
[2019-02-01 18:57] VITALS: BP 137/87
[2019-02-01 20:00] VITALS: BP 147/74
[2019-02-02 04:00] VITALS: BP 145/85
[2019-02-02 09:36] VITALS: BP 155/87
--- NOTE | 2019-02-02 10:53 | NUR ---
NUTRITION F/U CHART REVIEWED, PT VISIT. TOLERATING REG DIET WITH 75 TO 100% INTAKE RECENT MEALS. WILL CONTINUE TO PROVIDE DIET, HONOR FOOD PREFERENCES. RD FOLLOWING
[2019-02-02 14:16] VITALS: BP 155/92
[2019-02-02 18:04] VITALS: BP 184/81
[2019-02-02 20:00] VITALS: BP 141/84
[2019-02-03] VITALS: BP 143/84
[2019-02-03 04:00] VITALS: BP 157/97
--- NOTE | 2019-02-03 04:41 | NUR ---
I have reviewed this patient and I concur with the Shift Assessment completed by the Licensed Practical Nurse today this shift.
[2019-02-03] MEDS ORDERED: IPRAT-ALBUT 0.5-3 ML UPD (06:20)
[2019-02-03] MEDS ORDERED: LEVAQUIN750 MG PO (06:20)
[2019-02-03 08:55] VITALS: BP 146/78
--- NOTE | 2019-02-03 09:06 | MORECARE ---
CASE MANAGEMENT DISCHARGE SUMMARY PATIENT: ERICKA BLAIR UNIT: [id number] ADM DATE: 01/28/19 AGE: 73 : 44 SEX: M ROOM/BED: D.2227 AUTHOR: JUDIE CARLSON PHYSICIAN: REFERRING PHYSICIAN: СЕРГЕЙ GOTTI MD DATE OF SERVICE: 02/03/19 Discharge Plan Patient Name: ERICKA BLAIR Facility: [facility]:[place] : 1945 Planned Disposition: Home Anticipated Discharge Date: Discharge Date: Expected LOS: Initial Reviewer: [email or web address] Initial Review Date: 01/29/2019 Generated: 02/03/19 10:06 am Comments DCP- Discharge Planning Updated by [email or web address]: Autumn Ruiz on 02/03/19 7:[address] Patient Name: ERICKA BLAIR Encounter No: [id number] : 1945 Primary Insurance: MEDICARE A & B Anticipated DC Date: Planned Disposition: Home External Planned Provider: : DCP follow-up note: Patient and family in agreement with discharge plan. No changes to plan. Denies needs. Case management will follow and assist as needed. Autumn Sara DCP- Discharge Planning Updated by [email or web address]: Autumn Bowieroberta on 02/01/19 3:[address] Met with patient about nebulizer and neb meds. He states he already has a nebulizer and uses duo neb. He states he has a letter from [facility] to get his inhalers free of charge. He gets his duo neb from [facility]. He does not want me to get it through his DME. He states he is going to ask [facility] about the neb meds as well. CM will continue to follow and assist with discharge planning/needs. DCP- Discharge Planning Updated by [id number]: Autumn Sara on 01/29/19 3:[address] Patient Name: ERICKA BLAIR Admission Status: Urgent Accout number: [id number] Admission Date: 01-28-2019 : 1945 Admission Diagnosis: Attending: СЕРГЕЙ GOTTI Current LOS: 1 Anticipated DC Date: Planned Disposition: Home Primary Insurance: MEDICARE A & B Discharge Planning Comments: CM met with patient and his to discuss discharge planning. States he lives with his in a condo. States he has one flight downstairs to his apartment. States he is partially dependent on his for ADL's. States he no longer drives, his drives him where he needs to go. I discussed availability of rehab, SNF, home health and additional DME. He states he plans on returning home with his . He declines need for home health or additional DME. He has and he is going to get his neb meds from them, states they just sent him a letter about it. CM will continue to follow and assist with discharge planning/needs. Ambulatory Nurse: Autumn Ruiz DCPIA - Discharge Planning Initial Assessment Updated by [email or web address]: Autumn Ruiz on 01/29/19 4:53 pm * Is the patient Alert and Oriented? Yes * How many steps to enter\exit or inside your home? 1 flight/0 * PCP Sees Juliane Ramos at Dr. Hart's office * Pharmacy [facility] ([facility]) * Preadmission Environment Home with Family * ADLs Partial Dependent * Partial ADLs (Assistance needed) Ambulation Bathing Dressing Medication Management Transfers * Equipment Cane Nebulizer Walker * List name and contact numbers for known caregivers / representatives who currently or will assist patient after discharge: Zaina Blair - spouse - [phone] * Verbal permission to speak to the caregivers and representatives has been obtained from the patient. Yes * Community resources currently utilized None * Additional services required to return to the preadmission environment? No * Can the patient safely return to the preadmission environment? Yes * Has this patient been hospitalized within the prior 30 days at any hospital? No Coverage Notice Reviewer: [id number] - Autumn Ruiz Notice Issued Date-Time: 02/03/2019 8:49 Notice Type: IM Discharge Notice Notice Delivered To: Patient Relationship to Patient: Self Pearl Restorer Name: Delivery Method: HAND - Hand Delivered Aiyana Days: Prior Verbal Notification: Recipient Understood Notice: Yes Recipient Signature: Yes Med Rec Note Co-signed by Attending: Coverage Notice Comment: IMM explained, signed, given, copy placed in MR Last DP export: 02/01/19 3:48 p Patient Name: ERICKA BLAIR Page [phone] at 0906 All edits/amendments must be made on the electronic document DICTATION DATE: 02/03/19904 CRM ARCHITECT: JOSE DAVID 02/03/19904 RPT#: [id number] DC DATE: STATUS: ADM IN [facility] [address] [place] [address] END OF REPORT
--- NOTE | 2019-02-03 14:40 | MORECARE ---
CASE MANAGEMENT DISCHARGE SUMMARY PATIENT: ERICKA BLAIR UNIT: [id number] ADM DATE: 01/28/19 AGE: 73 : 44 SEX: M ROOM/BED: D.2227 AUTHOR: JUDIE CARLSON PHYSICIAN: REFERRING PHYSICIAN: СЕРГЕЙ GOTTI MD DATE OF SERVICE: 02/03/19 Discharge Plan Patient Name: ERICKA BLAIR Facility: [facility]:[place] : 1945 Planned Disposition: Home Anticipated Discharge Date: Discharge Date: 02/03/2019 Expected LOS: 0 Initial Reviewer: [email or web address] Initial Review Date: 01/29/2019 Generated: 02/03/19 3:40 pm Comments DCP- Discharge Planning Updated by [email or web address]: Autumn Ruiz on 02/03/19 7:[address] Patient Name: ERICKA BLAIR Encounter No: [id number] : 1945 Primary Insurance: MEDICARE A & B Anticipated DC Date: Planned Disposition: Home External Planned Provider: : DCP follow-up note: Patient and family in agreement with discharge plan. No changes to plan. Denies needs. Case management will follow and assist as needed. Autumn Sara DCP- Discharge Planning Updated by [email or web address]: Autumn Bowieroberta on 02/01/19 3:[address] Met with patient about nebulizer and neb meds. He states he already has a nebulizer and uses duo neb. He states he has a letter from [facility] to get his inhalers free of charge. He gets his duo neb from [facility]. He does not want me to get it through his DME. He states he is going to ask [facility] about the neb meds as well. CM will continue to follow and assist with discharge planning/needs. DCP- Discharge Planning Updated by [email or web address]: Autumn Bowieroberta on 01/29/19 3:[address] Patient Name: ERICKA BLAIR Admission Status: Urgent Accout number: [id number] Admission Date: 01-28-2019 : 1945 Admission Diagnosis: Attending: СЕРГЕЙ GOTTI Current LOS: 1 Anticipated DC Date: Planned Disposition: Home Primary Insurance: MEDICARE A & B Discharge Planning Comments: CM met with patient and his to discuss discharge planning. States he lives with his in a condo. States he has one flight downstairs to his apartment. States he is partially dependent on his for ADL's. States he no longer drives, his drives him where he needs to go. I discussed availability of rehab, SNF, home health and additional DME. He states he plans on returning home with his . He declines need for home health or additional DME. He has and he is going to get his neb meds from them, states they just sent him a letter about it. CM will continue to follow and assist with discharge planning/needs. Slot Service Specialist: Autumn Ruiz DCPIA - Discharge Planning Initial Assessment Updated by [email or web address]: Autumn Ruiz on 01/29/19 4:53 pm * Is the patient Alert and Oriented? Yes * How many steps to enter\exit or inside your home? 1 flight/0 * PCP Sees Juliane Ramos at Dr. Hart's office * Pharmacy [place] ([facility]) * Preadmission Environment Home with Family * ADLs Partial Dependent * Partial ADLs (Assistance needed) Ambulation Bathing Dressing Medication Management Transfers * Equipment Cane Nebulizer Walker * List name and contact numbers for known caregivers / representatives who currently or will assist patient after discharge: Zaina Blair - spouse - [phone] * Verbal permission to speak to the caregivers and representatives has been obtained from the patient. Yes * Community resources currently utilized None * Additional services required to return to the preadmission environment? No * Can the patient safely return to the preadmission environment? Yes * Has this patient been hospitalized within the prior 30 days at any hospital? No Coverage Notice Reviewer: ICD0039 - Autumn Ruiz Notice Issued Date-Time: 02/03/2019 8:49 Notice Type: IM Discharge Notice Notice Delivered To: Patient Relationship to Patient: Self Analysis Analyst Name: Delivery Method: HAND - Hand Delivered Aiyana Days: Prior Verbal Notification: Recipient Understood Notice: Yes Recipient Signature: Yes Med Rec Note Co-signed by Attending: Coverage Notice Comment: IMM explained, signed, given, copy placed in MR Last DP export: 02/03/19 8:06 a Patient Name: ERICKA BLAIR Page [id number] at 1440 All edits/amendments must be made on the electronic document DICTATION DATE: 02/03/19 1440 ENVIRONMENTAL ENGINEER: JOSE DAVID 02/03/19 1440 RPT#: [id number] DC DATE:02/03/19 STATUS: DIS IN [facility] [address] [place] [address] END OF REPORT
[2019-02-05 14:15] LABS: FUNGUS MYCOLOGY CULTURE Preliminary report (())
== END 2019-02-03 10:20 | disposition home or self-care (01) | DRG 186 ==
LOC: D.MS 14:11
PROVIDERS: Family Medicine; General Practice; Internal Medicine Pulmonary Disease; ADMIT Family Medicine; ATTEND Family Medicine
PROC: 0W9B3ZZ Drainage of Left Pleural Cavity, Percutaneous Approach (ICD-10-PCS; principal; 2019-01-29 11:30)
DX: J90 Pleural effusion, not elsewhere classified (principal); J15.9 Unspecified bacterial pneumonia; J44.1 Chronic obstructive pulmonary disease with (acute) exacerbation; J98.11 Atelectasis; R50.9 Fever, unspecified; J44.9 Chronic obstructive pulmonary disease, unspecified; K70.30 Alcoholic cirrhosis of liver without ascites; I10 Essential (primary) hypertension; K21.9 Gastro-esophageal reflux disease without esophagitis

== ENCOUNTER → 2019-08-25 10:59 | Outpatient (CLI) | payer MEDICARE, OTHER ==
[2019-01-29 12:14] VITALS: BMI 20.5
[~2019-08-25 10:59] MED LIST changes: +FOLIC ACID1 MG PO; +LEVAQUIN750 MG PO; +MELATONIN10 M1 PO; +MULTI-DAY VITAM1 TAB PO; +PROTONIX FOR OR40 MG PT; +REMERON15 MG PO; +TEGRETOL XR200 M1 PO; +TRAZODONE HCL150 MG PO
--- NOTE | 2019-08-30 13:29 | EC ---
PATIENT:ERICKA BLAIR DATE OF SERVICE: 08/25/19 SEX: M MEDICAL RECORD: [id number] DATE OF : 43 LOCATION:[facility] AGE OF PATIENT: 74 ADMISSION DATE: 08/25/19 REFERRING PHYSICIAN: INTERPRETING PHYSICIAN: JAMIE CABRERA MD ECHOCARDIOGRAM REPORT ECHO CHARGES 4 ECHO COMPLETE Date: 08/25/19 CLINICAL DIAGNOSIS: HEART MURMUR ECHOCARDIOGRAPHIC MEASUREMENTS (adult normal given) AC root (d.<3.7cm) 4.0 cm LV Septum d (<1.2 cm> 1.1 cm Valve Excursion 2.0 cm LV Septum (systole) 1.2 cm Left Atria (s.<4.0cm> 3.6 cm LVPW d(<1.2cm) 1.3 cm RV (d.<2.3cm) 3.7 cm LVPW (sytole) 1.6 cm LV diastole(<5.6CM) 5.7 cm MV E-F(>70mm/sec) cm LV systole 4.8 cm LVOT Diameter 2.4 cm MV exc.(>10mm) 0.90 cm Est.ejection fraction (50-75%) % DOPPLER: LVIT cm/sec A 82.0 cm/sec E 43.0 cm/sec LA cm/sec RVSP 28 mmHg LVOT 120 cm/sec AOP1/2T m/s Asc. Ao 128 cm/sec RVOT 80 cm/sec RA cm/sec PA 102 cm/sec AV Gradient Peak 6.53 mmHg AV Mean 4.14 mmHg AV Area 4.1 cm MV Gradient Peak 3.29 mmHg MV Mean 1.02 mmHg MV Area cm COMMENTS: Overhead Crane Truck Loader: 2 NICHELLE RAINEY Bow Stapler: 3 Dr. Seals TAPE# PACS Pericardial Effusion N DATE OF SERVICE: Adequate 2D, color flow, spectral Doppler, and M-mode. No LVH. LV internal dimensions are normal. Wall motion is normal. EF is greater than or equal to 55%. Aortic valve is tricuspid. No evidence of stenosis by Doppler interrogation. Left atrium is normal at 3.6 cm. Mitral valve shows no prolapse. Trace MR. Right-sided chambers are grossly normal. Trace TR. TRANSINT:[id number] Voice Confirmation ID: [id number] DOCUMENT ID: [id number] ECHOCARDIOGRAM REPORT [id number] ERICKA BLAIR,JAMIE Kramer MD at 1329 CC: [id number] DICTATION DATE: 08/26/19 1318 SHEET CUTTING OPERATOR: 08/26/19 1330 DEP CLI 08/25/19 [address] [place] [address]
== END | disposition home or self-care (01) ==
LOC: D.HCCECHO 10:59 → D.HCCARDIO 11:00
PROVIDERS: ATTEND Internal Medicine Interventional Cardiology
DX: R01.1 Cardiac murmur, unspecified (principal)

== ENCOUNTER → 2019-12-01 11:15 | Outpatient (CLI) | payer MEDICARE, OTHER ==
[2019-01-29 12:14] VITALS: BMI 20.5
== END | disposition home or self-care (01) ==
LOC: D.CT 11:15
PROVIDERS: ATTEND Nurse Practitioner Family
DX: S09.90XA Unspecified injury of head, initial encounter (principal)

== ENCOUNTER 2020-05-05 13:11 | Inpatient (IN) | payer MEDICARE, OTHER ==
[~2020-05-05] VITALS: Ht 185.4 cm; Wt 71.0 kg
[2020-05-05] VITALS (12 sets, daily range): BP systolic 106–161; BP diastolic 66–116; BMI 20.5
[2020-05-05 13:54] LABS: HEMATOCRIT 39.9 % (42.0-54.0); HEMOGLOBIN 13.2 g/dL (13.5-17.5)
--- NOTE | 2020-05-05 14:00 | NUR ---
ARRIVED ON UNIT VIA STRETCHER, HOOKED TO MONITORS, ALERT AND ORIENTED, ALL PPP, VSS, CALL LIGHT IN REACH
[2020-05-05 14:05] LABS: AMYLASE - SERUM 64 U/L (25-115); LIPASE 62 U/L (73-393)
--- NOTE | 2020-05-05 15:55 | NUR ---
1335 ARRIVED FROM HOME DIRECT ADMIT TO ICU 2305 ADMIT ASSESSMENT COMPLETE HELD NPO FOR POSSIBLE EGD TODAY DR SCOTT CONSULTED FOR GI BLEED NO BLEED NOTED
--- NOTE | 2020-05-05 15:58 | NUR ---
1400 START PIV 20 GAUGE TO LEFT WRIST FLUSHES WELL
--- NOTE | 2020-05-05 16:07 | NUR ---
1452 PRO-OP CALLED PRE-OP MEDS GIVEN
--- NOTE | 2020-05-05 16:08 | NUR ---
1512 GI STAFF TRANSPORTED PT TO GI LAB FOR PROCEEDURE
--- NOTE | 2020-05-05 16:10 | NUR ---
1550 RETURNED TO ICU ROOM INITIATED FREQUENT POST-OP VITAL SIGNS. PATIENT ASLEEP AND AWAKENS TO VOICE
--- NOTE | 2020-05-05 18:22 | NUR ---
1700 REGULAR DIET TRAY SERVED APPETITE GOOD
[2020-05-05 20:41] LABS: HEMATOCRIT 29.2 % (42.0-54.0); HEMOGLOBIN 9.7 g/dL (13.5-17.5)
--- NOTE | 2020-05-05 21:55 | NUR ---
DR SCOTT CALLED REGARDING DROP IN H & H, NO ORDERS RECEIVED AT THIS TIME.
[2020-05-06 02:59] LABS: BASOPHILS 0.3 % (0-2); HEMATOCRIT 29.4 % (42.0-54.0); HEMOGLOBIN 9.9 g/dL (13.5-17.5); IMMATURE GRANULOCYTES 0.2 % (0-5); LYMPHOCYTES 19.2 % (15-50); MCH 33.7 pg (26.0-34.0); MCHC 33.7 g/dL (31.0-37.0); MONOCYTES 8.1 % (2-11); NEUTROPHILS 69.2 % (40-80); PLATELET COUNT 245 10x3/uL (130-400); RBC 2.94 10x6/uL (4.20-6.10); RDW 12.7 % (11.5-14.5); WBC 5.9 10x3/uL (4.8-10.8)
[2020-05-06 03:00] VITALS: BP 120/70
[2020-05-06 03:21] LABS: ANION GAP 10.3 mmol/L (8-16); CALCIUM 7.4 mg/dL (8.5-10.1); CARBON DIOXIDE 23.8 mmol/L (21.0-32.0); CREATININE - SERUM 1.1 mg/dL (0.6-1.3); POTASSIUM - SERUM 3.1 mmol/L (3.5-5.1)
[2020-05-06 06:46] LABS: HEMATOCRIT 27.5 % (42.0-54.0); HEMOGLOBIN 9.1 g/dL (13.5-17.5)
[2020-05-06 07:00] VITALS: BP 124/77
--- NOTE | 2020-05-06 07:16 | HP ---
PATIENT: ERICKA BLAIR JR MEDICAL RECORD: [id number] ACCOUNT: [id number] LOCATION:[facility] D.2305 : [birth year] ADMISSION DATE: 05/05/20 PCP: СЕРГЕЙ GOTTI MD HISTORY AND PHYSICAL EXAMINATION REASON FOR ADMISSION: Fatigue and dark stools. HISTORY OF PRESENT ILLNESS: The patient is a 74-year-old male with known history of alcoholism and cirrhosis, whose left him several weeks ago. He has been drinking more heavily, two large bourbon drinks a day. He has noticed some dark tarry stools for the last week or more and some mild mid epigastric abdominal pain. He denies any fever, lightheadedness or confusion. He has been taking no anti-inflammatories. He presented to the office this morning and saw Jenna Ramos APN. She examined him, showing dark heme-positive stool and minimal epigastric abdominal pain. He was normotensive and oriented. His stat hemoglobin was 12.7, hematocrit was 37.5, the white count 9800. MCV was 100 and platelet count was 310,000. His potassium was low at 2.7, BUN and creatinine were 12 and 1.29 respectively. Liver function showed alkaline phosphatase of 125, SGPT of 10. The patient initially refused to go to the hospital, was then relented. PAST MEDICAL HISTORY: Alcoholism with cirrhosis, last hospitalized at [facility] in November with cellulitis of his wrist. History of skin cancers, COPD, still smoking, depression, GERD, essential hypertension, hypophosphatemia, hypokalemia, IBS, noncompliant adult onset, obstructive sleep apnea, restless leg syndrome, hypothyroidism, depression. PAST SURGICAL HISTORY: He had ankle fracture repair; EGD 03/21/2018, Dr. Neff; colonoscopy with benign polyps, Dr. Ayala 2012; EGD 2012, 2017; has open treatment for clavicular fracture on the right in 2014; right hip replacement 08/2019; removal of superficial implant ankle hardware, 07/2017; repair nonunion scaphoid carpal bone, 10/2019; shoulder arthroscopy and rotator cuff repair, 09/2015 ALLERGIES: None known. FAMILY HISTORY: Father had leukemia. Mother's health unknown. SOCIAL HISTORY: He was up until this year and his are going through a divorce since January. Socially, one pack a day smoker for 25 years, heavy bourbon drinker daily. Denies ever having had delirium tremens. States he quit smoking in 2019. MEDICATIONS: Megace 400 mg p.o. daily, Losartan 25 mg daily, tramadol 50 mg every 6 hours p.r.n. hip pain, potassium chloride ER 20 one daily, carbamazepine ER 100 mg tablets b.i.d., mirtazapine 15 mg p.o. at bedtime, Lactulose 17 grams p.o. daily for constipation, Protonix 40 mg daily, Nitrostat 0.4 sublingual p.r.n. chest pain, melatonin 10 mg at bedtime, folic acid 1 mg daily, Trelegy Ellipta one puff daily, vitamin B12 one tablet daily, cyanocobalamin 1 cc IM monthly, aspirin 81 mg daily, DuoNeb updrafts q.i.d., furosemide 20 mg p.o. daily p.r.n. edema, trazodone 50 mg one-half to one at bedtime p.r.n. sleep, probiotic 15 billion capsule 1 daily, Viagra 20 mg one to two p.r.n. intercourse, multivitamin 1 daily. REVIEW OF SYSTEMS: HISTORY AND PHYSICAL [id number] ERICKA BLAIR GENERAL: Chronic fatigue. No fever. HEENT: No recent visual change, sinus congestion or sore throat. RESPIRATORY: Has mild short of breath on exertion. No recent cough, congestion or hemoptysis. CARDIAC: No exertional chest pain, claudication or edema. GASTROINTESTINAL: Denies nausea, has had black tarry stools for several weeks and loose frequent stools. He has had intermittent rectal bleeding, small amount. No rectal pain, no hematemesis. MUSCULOSKELETAL: He has chronic lumbago and hip discomfort. PSYCHIATRIC: Admits to depression, excessive stress, anxiety, insomnia. Denies suicidal thought. GENITOURINARY: Nocturia once nightly. ENDOCRINE: Denies polyuria, polydipsia, heat or cold intolerance. NEUROLOGIC: No history of stroke, TIA, or vascular headaches. INTEGUMENT: No rash or itching. PHYSICAL EXAMINATION: VITAL SIGNS: Blood pressure 130/82, heart rate is 110 and regular, sats 98% on room air. GENERAL: Alert 74-year-old male who is feeling older than stated age, normocephalic. He is unshaven. HEENT: Eye exam shows no scleral icterus. Conjunctivae are pink. Oropharynx unremarkable. NECK: Supple. CHEST: He has expiratory wheezes in the upper lobes with forced expiration. No rales. HEART: Tachycardic without murmur or gallop. ABDOMEN: Soft, minimally tender in the epigastrium. Liver, kidney, spleen not palpable. RECTAL: No stool in the vault. EXTREMITIES: No CC&E. INTEGUMENT: Nonicteric. NEUROLOGIC: Oriented to person, place, and time. Cranial nerves intact. Gait is unsteady. PSYCHIATRIC: Admits to depression, anxieties. He is concerned that his will steal everything in the house if he goes to the hospital. LABS: As above. ASSESSMENT: 1. Melena, probably from upper gastrointestinal bleed. 2. Alcoholism with a history of cirrhosis. 3. Hypokalemia, probably nutritional. 4. Hypertension. 5. Chronic obstructive pulmonary disease. 6. Osteoarthritis. PLAN: We do have GI coverage with Dr. Robert this weekend. We will admit. Place on banana bag, IV Protonix infusion, potassium replacement. Further workup pending clinical course. TRANSINT:[id number] Voice Confirmation ID: [id number] DOCUMENT ID: [id number] HISTORY AND PHYSICAL [id number] ERICKA BLAIR TIMOTHY MD at 0716 CC: [id number] DICTATION DATE: 05/05/20 1245 LABEL REMOVER: 05/05/20 1547 ADM IN [address] [id number] [place] [address]
[2020-05-06 11:00] VITALS: BP 131/89
[2020-05-06 11:43] VITALS: Ht 185.4 cm; Wt 71.0 kg
--- NOTE | 2020-05-06 13:22 | NUR ---
0700 REPORT RECIEVED AND CARE ASSUMED OF PATIENT.. SEE FLOW SHEET FOR SHIFT ASSESMENT FINDINGS.. 0800 BREAKFAST SERVED AND PT IS FEEDING SELF.. 0900 PT IS WITHOUT CHANGES.. 1000 LAB DRAWN.. 1100 SLEEPING 1200 LUNCH SERVED FEEDING SELF.. DR SCOTT IN TO SEE PATIENT.. UPDATE EMIL,, AWAITING H AND H RESLUTS. 1300 LAB DRAWN .. H AND H
[2020-05-06 13:33] LABS: HEMATOCRIT 34.3 % (42.0-54.0); HEMOGLOBIN 11.5 g/dL (13.5-17.5)
--- NOTE | 2020-05-06 14:44 | NUR ---
1400 DR GOTTI CALLED WITH H AND H RESULTS.. DC HOME.. 1415 PT IS DC HOME WITH FRIEND .. MED CALLED TO [facility]....
== END 2020-05-06 14:46 | disposition home or self-care (01) | DRG 379 ==
LOC: D.ICU 13:11
PROVIDERS: Internal Medicine Gastroenterology; ADMIT Family Medicine; ATTEND Family Medicine
PROC: 0DB78ZX Excision of Stomach, Pylorus, Via Natural or Artificial Opening Endoscopic, Diagnostic (ICD-10-PCS; 2020-05-05)
PROC: 0DB98ZX Excision of Duodenum, Via Natural or Artificial Opening Endoscopic, Diagnostic (ICD-10-PCS; principal; 2020-05-05 15:00)
DX: K29.51 Unspecified chronic gastritis with bleeding (principal); K92.1 Melena; I10 Essential (primary) hypertension; J44.9 Chronic obstructive pulmonary disease, unspecified; F17.200 Nicotine dependence, unspecified, uncomplicated; K44.9 Diaphragmatic hernia without obstruction or gangrene; K29.81 Duodenitis with bleeding